=== PATIENT | male | born 2000 | race Caucasian/White ===

== ENCOUNTER 2019-02-04 23:17 | Emergency (ER) | payer MEDICAID ==
[2019-02-04] MEDS ORDERED: ONDANSETRON HCL IV 4 MG/2 ML VIAL IVP ONE (23:32)
--- NOTE | 2019-02-04 23:36 | Emergency Department Record ---
History of Present Illness - General Chief complaint: Vomiting Stated complaint: VOMITING Time Seen by Provider: 02/04/19 23:32 Source: Patient Mode of Arrival: Ambulatory Limitations: No limitations - History of Present Illness Initial comments: 18 yo male presents to ED for evaluation of nausea and vomiting that began approximately 16 hours ago. 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 Patient denies abdominal pain symptoms, denies health problems at his baseline. Patient denies previous surgeries. MD complaint: Nausea, Vomiting Onset/Timin -: Days(s) Description of Vomiting: Other Associated Abdominal Pain: Yes Location: Epigastric Radiation: Other Severity: Moderate Severity scale (1-10): 5 Quality: Aching Consistency: Constant Improves with: None Worsens with: None Context: Other Associated Symptoms: Denies other symptoms - Related Data Previous Rx's Medication Instructions Recorded Ondansetron [Zofran Odt] 4 mg PO Q8H PRN #15 tab.rapdis 02/05/19 Allergies Allergy/AdvReac Type Severity Reaction Status Date / Time No Known Drug Allergies Allergy Unverified 11/18/18 16:11 Travel Screening - Travel/Exposure Within Last 30 Days Have you traveled within the last 30 days?: No - Travel Symptoms Symptom Screening: None Review of Systems Constitutional: Denies: Chills, Fever, Malaise, Night sweats Eyes: Denies: Eye discharge, Eye pain ENT: Denies: Congestion, Ear pain, Epistaxis Respiratory: Denies: Cough, Dyspnea Cardiovascular: Denies: Chest pain, Dyspnea on exertion Endocrine: Denies: Fatigue, Heat or cold intolerance Gastrointestinal: Reports: Nausea, Vomiting. Denies: Abdominal pain Genitourinary: Denies: Incontinence, Retention Musculoskeletal: Denies: Arthralgia, Back pain Skin: Denies: Bruising, Change in color Neurological: Denies: Abnormal gait, Confusion, Headache, Seizure Psychiatric: Denies: Anxiety Hematological/Lymphatic: Denies: Anemia, Blood Clots Physical Exam - General General Appearance: Alert, Oriented x3, Cooperative, Mild distress Limitations: No limitations - Head Head exam: Atraumatic, Normocephalic, Normal inspection Head exam detail: negative: Abrasion, Contusion, Pearce's sign, General tenderness, Hematoma, Laceration - Eye Eye exam: Normal appearance. negative: Conjunctival injection, Periorbital swelling, Periorbital tenderness, Scleral icterus - ENT Ear exam: negative: Auricular hematoma, Auricular trauma Nasal Exam: negative: Active bleeding, Discharge, Dried blood, Foreign body Mouth exam: negative: Drooling, Laceration, Muffled voice, Tongue elevation - Neck Neck exam: Normal inspection. negative: Meningismus, Tenderness - Respiratory Respiratory exam: Normal lung sounds bilaterally. negative: Rales, Respiratory distress, Rhonchi, Stridor - Cardiovascular Cardiovascular Exam: Normal rhythm, Normal heart sounds, Tachycardia - GI/Abdominal GI/Abdominal exam: Soft, Other (Benign abdominal examination, no rebound, guarding, or peritoneal signs are present on examination.). negative: Rebound, Rigid, Tenderness - Rectal Rectal exam: Deferred - exam: Deferred - Extremities Extremities exam: Normal inspection. negative: Pedal edema, Tenderness - Back Back exam: Denies: CVA tenderness (R), CVA tenderness (L) - Neurological Neurological exam: Alert, Normal gait, Oriented X3 - Psychiatric Psychiatric exam: Normal affect, Normal mood - Skin Skin exam: Normal color. negative: Abrasion Type of lesion: negative: abrasion Course Vital Signs 02/04/19 23:23 Pulse Rate 119 H Respiratory 22 Rate Blood Pressure 135/105 Pulse Ox 97 - Reevaluation(s) Reevaluation #1: 02/04/19 23:57 Laboratory studies were reviewed and are grossly unremarkable for an acute process. Patient was updated on all results, clinically improved on re-evaluation. 2nd Liter ordered to infuse. Reevaluation #2: 02/05/19 00:47 Patient reassessed following 2nd Liter NS, reports that he is feeling much improved, no recurrent vomiting while in the ED. Repeat abdominal examination is benign. repeat pulse 88. Patient appears stable for discharge at this time. Medical Decision Making - Lab Data Result diagrams: 02/04/19 23:30 02/04/19 23:30 Disposition Disposition: Discharge Clinical Impression: Nausea & vomiting Qualifiers: Vomiting type: unspecified Vomiting Intractability: non-intractable Qualified Code(s): R11.2 - Nausea with vomiting, unspecified Disposition: Home, Self-Care Condition: (2) Stable Instructions: Acute Nausea and Vomiting (ED) Additional Instructions: Return to ED if your symptoms worsen or if you have any concerns. Zofran as directed. Follow-up with your family doctor in 3-5 days as directed. Prescriptions: Ondansetron [Zofran Odt] 4 mg PO Q8H PRN #15 tab.rapdis PRN Reason: Nausea/Vomiting Forms: Patient Portal Access Time of Disposition: 00:48 Quality - Quality Measures Quality Measures: N/A - Blood Pressure Screening Does Patient Have Any of the Following: No Blood Pressure Classification: Hypertensive Reading Systolic Measurement: 135 Diastolic Measurement: 105 Screening for High Blood Pressure: < First Hypertensive BP, F/U Documented > [ G8950] First Hypertensive Follow-up Interventions: Referral to alternative/primary care provider.
[2019-02-04 23:40] LABS: BASO % 0.1 % (0-6); HEMATOCRIT 48.9 % (42.0-52.0); HEMOGLOBIN 17.2 gm/dl (14.0-18.0); MEAN CELL VOLUME 85.5 fl (81-97); MEAN CORPUSCULAR HGB CONC 35.2 g/dl (32-36); MEAN PLATELET VOLUME 10.2 fl (7.4-10.4); MONO % 2.1 % (0-9); PLATELET COUNT 251 K/uL (130-400); RED BLOOD COUNT 5.72 M/uL (4.40-5.70); RED CELL DISTRIBUTION WIDTH 12.6 % (11.5-14.5); WHITE BLOOD COUNT W/O DIFF 11.2 K/uL (4.2-12.2)
[2019-02-04] MEDS ORDERED: 0.9 % SODIUM CHLORIDE 1000ML 1,000 ML IV SCH (23:45)
[2019-02-04 23:49] LABS: BLOOD UREA NITROGEN 15 mg/dL (6-20); CREATININE 0.9 mg/dL (0.7-1.2)
[2019-02-04 23:50] LABS: LIPASE 8 U/L (13-60)
[2019-02-04 23:51] LABS: GLUCOSE,RANDOM 133 mg/dL (74-109)
[2019-02-04 23:54] LABS: ALB/GLOB RATIO 1.9 (1.1-1.8); ALBUMIN 5.2 g/dL (4.0-5.0); ALKALINE PHOSPHATASE 112 U/L (40-129); ALT/SGPT 20 U/L (<41); AST/SGOT 18 U/L (10.0-50.0)
[2019-02-05 00:01] LABS: PLATELET ESTIMATE NORMAL (NORMAL)
[2019-02-05] MEDS ORDERED: 0.9 % SODIUM CHLORIDE 1000ML 1,000 ML IV SCH (00:15)
[2019-02-05] MEDS ORDERED: ONDANSETRON 4 MG ODT TABLET SL ONE (00:49)
== END 2019-02-05 01:17 | disposition home or self-care (01) ==
LOC: ER 23:17
DX: K92.0 Hematemesis (principal); R10.13 Epigastric pain
CPT/HCPCS: 99284 ×2; 96374; 96361; 83690; 80053; 85027; J2405; J7030

== ENCOUNTER 2019-05-01 18:27 | Emergency (ER) | payer MEDICAID ==
[2019-05-01] MEDS ORDERED: 0.9 % SODIUM CHLORIDE 1,000 ML BAG IV ONE ×2 (18:53→20:03)
[2019-05-01] MEDS ORDERED: ONDANSETRON HCL IV 4 MG/2 ML VIAL IV ONE (18:53)
--- NOTE | 2019-05-01 18:58 | Emergency Department Record ---
History of Present Illness - General Chief complaint: Vomiting blood Stated complaint: vomiting blood Time Seen by Provider: 05/01/19 18:38 Source: Patient, Family Mode of Arrival: Ambulatory Limitations: No limitations - History of Present Illness Initial comments: The patient is here due to vomiting all day today. The patient has not felt well today and has had multiple episodes of vomiting which started about 10 hours ago. Over the last few hours he may have had some mild coffee grounds in it and sometimes some blood streaking. The patient denies any diarrhea, abdominal pain, fever, dysuria, black or bloody stools or CP. The patient was here in the ER 3 months ago for the same thing and has a LONG hx of frequent vomiting. He has had no abdominal surgeries and does not smoke marijuana. MD complaint: Coffee ground emesis Onset/Timin -: Hour(s) Quality: Painless Consistency: Intermittent Improves with: None Worsens with: None Associated Symptoms: Vomiting Treatments Prior to Arrival: None - Related Data Previous Rx's Medication Instructions Recorded Omeprazole [Prilosec] 20 mg PO DAILY #14 cap. 05/01/19 Ondansetron [Zofran Odt] 4 mg SL .Q4-6H PRN #12 tab.rapdis 05/01/19 Allergies Allergy/AdvReac Type Severity Reaction Status Date / Time No Known Drug Allergies Allergy Verified 05/01/19 18:39 Travel Screening - Travel/Exposure Within Last 30 Days Have you traveled within the last 30 days?: No - Travel/Exposure Within Last Year Have you traveled outside the [place] in the last year?: No - Additonal Travel Details Have you been exposed to anyone with a communicable illness?: No - Travel Symptoms Symptom Screening: None Review of Systems Constitutional: Denies: Chills, Fever Eyes: Denies: Eye discharge ENT: Denies: Congestion Respiratory: Denies: Cough Past Medical History - SOCIAL HISTORY Smoking Status: Never smoker Alcohol Use: None Drug Use: None - RESPIRATORY Hx Respiratory Disorders: No - CARDIOVASCULAR Hx Cardio Disorders: No - NEURO Hx Neuro Disorders: No - GI Hx GI Disorders: No - Hx Genitourinary Disorders: No - ENDOCRINE Hx Endocrine Disorders: No - MUSCULOSKELETAL Hx Musculoskeletal Disorders: No - PSYCH Hx Psych Problems: No - HEMATOLOGY/ONCOLOGY Hx Hematology/Oncology Disorders: No Family Medical History Any Significant Family History?: No Family Hx Comment (NOT TO BE USED IN PLACE OF ITEMS BELOW): DENIES Physical Exam - General General Appearance: Alert, Oriented x3, Cooperative, No acute distress - Head Head exam: Atraumatic, Normocephalic, Normal inspection - Eye Eye exam: Normal appearance, PERRL - ENT Throat exam: Normal inspection. negative: Tonsillar erythema, Tonsillar exudate - Neck Neck exam: Normal inspection, Full ROM. negative: Tenderness - Respiratory Respiratory exam: Normal lung sounds bilaterally. negative: Respiratory distress - Cardiovascular Cardiovascular Exam: Regular rate, Normal rhythm, Normal heart sounds - GI/Abdominal GI/Abdominal exam: Soft, Normal bowel sounds. negative: Distended, Guarding, Rebound, Rigid, Tenderness - Rectal Rectal exam: Deferred (The patient refused a rectal exam due to no hx of black or bloody stools.) - Extremities Extremities exam: Normal inspection, Full ROM, Normal capillary refill. negative: Tenderness - Back Back exam: Reports: Normal inspection - Neurological Neurological exam: Alert, Normal gait. negative: Abnormal gait, Motor sensory deficit Course Vital Signs 05/01/19 18:40 Temperature 100 F H Pulse Rate 100 H Respiratory 20 Rate Blood Pressure 154/92 Pulse Ox 99 - Reevaluation(s) Reevaluation #1: The patient is feeling much better at this time. He no longer is vomiting and his nausea is improved. The patient also denies any AP, TRIMBLE, or back pain. 05/01/19 19:44 Reevaluation #2: The patient is resting comfortably at this time. He did vomit once after drinking some water but there was no bright red blood present. The patient has a LONG hx of this exact same problems and clearly seems to have a Cyclic Vomiting disorder. He will be referred to GI for an EGD and may need to return to the ER tomorrow if his symptoms persist. I did offer to keep the patient in the hospital overnight but he did decline and would like to go home. I do feel the patient is stable for discharge due to the fact he has a long hx of this exact same issue, has no pain or abdominal tenderness and clearly is not significantly bleeding. 05/01/19 20:05 Reevaluation #3: The patient is doing very well at this time. He has had no further vomiting for at least an hour and is resting comfortably. I again offered to keep the patient in the hospital overnight but he did decline. The patient will need to return to the ER for any worsening symptoms or if the vomiting returns tomorrow. He is to take the Prilosec and Zofran as directed. 05/01/19 21:01 Medical Decision Making - Lab Data Result diagrams: 05/01/19 18:50 05/01/19 18:50 Disposition Disposition: Discharge Clinical Impression: Nausea & vomiting Qualifiers: Vomiting type: unspecified Vomiting Intractability: non-intractable Qualified Code(s): R11.2 - Nausea with vomiting, unspecified Disposition: Home, Self-Care Condition: (2) Stable Instructions: Acute Nausea and Vomiting (ED) Additional Instructions: Please do not eat or drink anything until morning. Use the Zofran as directed and start the Prilosec tomorrow. Please return to the ER for any persistent vomiting, or any pain, fever, or bleeding. Please see the GI Specialist in the Specialty clinic here next week or in [place] for further evaluation. Prescriptions: Omeprazole [Prilosec] 20 mg PO DAILY #14 cap Ondansetron [Zofran Odt] 4 mg SL .Q4-6H PRN #12 tab.rapdis PRN Reason: Nausea Referrals: [facility] [Provider Group] Forms: Patient Portal Access Time of Disposition: 21:05 Quality - Quality Measures Quality Measures: N/A - Blood Pressure Screening View Details: Yes Does Patient Have Any of the Following: No Blood Pressure Classification: Hypertensive Reading Systolic Measurement: 154 Diastolic Measurement: 92 Screening for High Blood Pressure: < First Hypertensive BP, F/U Documented > [G8950] First Hypertensive Follow-up Interventions: Referral to alternative/primary care provider.
[2019-05-01 19:17] LABS: HEMATOCRIT 48.2 % (42.0-52.0); HEMOGLOBIN 16.9 gm/dl (14.0-18.0); MEAN CELL VOLUME 86.8 fl (81-97); MEAN CORPUSCULAR HEMOGLOBIN 30.5 pg (27-33); MEAN CORPUSCULAR HGB CONC 35.1 g/dl (32-36); MEAN PLATELET VOLUME 10.8 fl (7.4-10.4); PLATELET COUNT 231 K/uL (130-400); RED BLOOD COUNT 5.55 M/uL (4.40-5.70); RED CELL DISTRIBUTION WIDTH 12.4 % (11.5-14.5); WHITE BLOOD COUNT W/O DIFF 9.4 K/uL (4.2-12.2)
[2019-05-01 19:20] LABS: URINE APPEARANCE CLEAR; URINE BILIRUBIN NEGATIVE (NEGATIVE); URINE BLOOD NEGATIVE (NEGATIVE); URINE COLOR YELLOW; URINE GLUCOSE (UA) NEGATIVE (NEGATIVE); URINE KETONE 15 mg/dL (NEGATIVE); URINE LEUKOCYTE ESTERASE NEGATIVE (NEGATIVE); URINE NITRITE NEGATIVE (NEGATIVE); URINE UROBILINOGEN 0.2 E.U./dL (0.20 - 1.00)
[2019-05-01 19:21] LABS: AMPHETAMINE SCREEN URINE NOT DETECTED; BARBITURATE SCREEN URINE NOT DETECTED; BENZODIAZEPINE SCREEN URINE NOT DETECTED; COCAINE SCREEN URINE NOT DETECTED; METHADONE SCREEN URINE NOT DETECTED; METHAMPHETAMINE SCREEN NOT DETECTED; OPIATE SCREEN URINE NOT DETECTED; OXYCODONE SCREEN URINE NOT DETECTED; PHENCYCLIDINE SCREEN URINE NOT DETECTED; PROPOXYPHENE SCREEN URINE NOT DETECTED; THC SCREEN URINE NOT DETECTED; TRICYCLIC ANTIDEPRESSANT SCRN NOT DETECTED
[2019-05-01 19:27] LABS: URINE EPITHELIAL CELLS NONE SEEN (FEW); URINE RBC NONE SEEN (NONE SEEN); URINE WBC NONE SEEN (0-2/hpf)
[2019-05-01 19:29] LABS: BLOOD UREA NITROGEN 9 mg/dL (6-20); CREATININE 0.9 mg/dL (0.7-1.2)
[2019-05-01] MEDS ORDERED: ONDANSETRON HCL IV 4 MG/2 ML VIAL IVP ONE (19:29)
[2019-05-01 19:30] LABS: LIPASE 19 U/L (13-60); TOTAL PROTEIN 7.5 g/dL (6.6-8.7)
[2019-05-01 19:32] LABS: GLUCOSE,RANDOM 122 mg/dL (74-109)
[2019-05-01 19:35] LABS: ALBUMIN 5.1 g/dL (4.0-5.0); ALKALINE PHOSPHATASE 89 U/L (40-129); ALT/SGPT 16 U/L (<41); BILIRUBIN,DIRECT < 0.2 mg/dL (0-0.3)
[2019-05-01 19:36] LABS: AST/SGOT 19 U/L (10.0-50.0)
[2019-05-01] MEDS ORDERED: SUCRALFATE 1 G/10 ML UD PO ONE (19:43)
[2019-05-01] MEDS ORDERED: ONDANSETRON 4 MG ODT TABLET SL ONE (21:03)
== END 2019-05-01 21:24 | disposition home or self-care (01) ==
LOC: ER 18:27
DX: R11.2 Nausea with vomiting, unspecified (principal)
CPT/HCPCS: 80048; 80076; 80305; 81001; 83690; 85027; 96361; 96374; 99284; J2405; J7030

== ENCOUNTER 2019-06-21 02:13 | Emergency (ER) | payer MEDICAID ==
[2019-06-21] MEDS ORDERED: ONDANSETRON HCL IV 4 MG/2 ML VIAL IVP ONE (02:25)
[2019-06-21] MEDS ORDERED: DIPHENHYDRAMINE HCL 50 MG/ML VIAL IVP ONE (02:25)
[2019-06-21] MEDS ORDERED: METOCLOPRAMIDE HCL 10 MG/2 ML VIAL IVP ONE (02:25)
[2019-06-21] MEDS ORDERED: 0.9 % SODIUM CHLORIDE 1000ML 1,000 ML IV SCH (02:30)
--- NOTE | 2019-06-21 02:31 | Emergency Department Record ---
History of Present Illness - General Chief complaint: Vomiting blood Stated complaint: VOMMITING Time Seen by Provider: 06/21/19 02:19 Source: Patient Mode of Arrival: Ambulatory Limitations: No limitations - History of Present Illness Initial comments: 18 yo male presents to ED for evaluation of vomiting blood intermittently for the past 5.5 hours. Patient has a history of UGI bleeding related to repeated episodes of retching, reports that he does not take anything daily for PUD. Patient also reports that he has Zofran at home that he did not use this evening. Patient denies history of marijuana use or alcohol use, denies health problems at his baseline. Patient denies use or anticoagulation medications at his baseline. MD complaint: Blood streaked emesis Onset/Timin -: Hour(s) Radiation: None Consistency: Getting worse Improves with: None Worsens with: None Context: Other Associated Symptoms: Abdominal pain, Nausea, Vomiting Treatments Prior to Arrival: None - Related Data Previous Rx's Medication Instructions Recorded Ondansetron [Zofran Odt] 4 mg SL .Q4-6H PRN #12 tab.rapdis 05/01/19 Allergies Allergy/AdvReac Type Severity Reaction Status Date / Time No Known Drug Allergies Allergy Verified 05/01/19 18:39 Travel Screening - Travel/Exposure Within Last 30 Days Have you traveled within the last 30 days?: No - Travel/Exposure Within Last Year Have you traveled outside the [place] in the last year?: No - Additonal Travel Details Have you been exposed to anyone with a communicable illness?: No - Travel Symptoms Symptom Screening: None Review of Systems Constitutional: Denies: Chills, Fever, Malaise, Night sweats Eyes: Denies: Eye discharge, Eye pain ENT: Denies: Congestion, Ear pain, Epistaxis Respiratory: Denies: Cough, Dyspnea Cardiovascular: Denies: Chest pain, Dyspnea on exertion Endocrine: Denies: Fatigue, Heat or cold intolerance Gastrointestinal: Reports: Hematemesis, Nausea, Vomiting. Denies: Abdominal pain Genitourinary: Denies: Incontinence, Retention Musculoskeletal: Denies: Arthralgia, Back pain Skin: Denies: Bruising, Change in color Neurological: Denies: Abnormal gait, Confusion, Headache, Seizure Psychiatric: Denies: Anxiety Hematological/Lymphatic: Denies: Anemia, Blood Clots Past Medical History - SOCIAL HISTORY Smoking Status: Never smoker Alcohol Use: None Drug Use: None - RESPIRATORY Hx Respiratory Disorders: No - CARDIOVASCULAR Hx Cardio Disorders: No - NEURO Hx Neuro Disorders: No - GI Hx GI Disorders: No - Hx Genitourinary Disorders: No - ENDOCRINE Hx Endocrine Disorders: No - MUSCULOSKELETAL Hx Musculoskeletal Disorders: No - PSYCH Hx Psych Problems: No - HEMATOLOGY/ONCOLOGY Hx Hematology/Oncology Disorders: No Family Medical History Any Significant Family History?: No Family Hx Comment (NOT TO BE USED IN PLACE OF ITEMS BELOW): DENIES Physical Exam - General General Appearance: Alert, Oriented x3, Cooperative, Moderate distress, Other (Patient does exhibit gross hematemesis on examination) Limitations: No limitations - Head Head exam: Atraumatic, Normocephalic, Normal inspection Head exam detail: negative: Abrasion, Contusion, Pearce's sign, General tenderness, Hematoma, Laceration - Eye Eye exam: Normal appearance. negative: Conjunctival injection, Periorbital swelling, Periorbital tenderness, Scleral icterus - ENT Ear exam: negative: Auricular hematoma, Auricular trauma Nasal Exam: negative: Active bleeding, Discharge, Dried blood, Foreign body Mouth exam: negative: Drooling, Laceration, Muffled voice, Tongue elevation - Neck Neck exam: Normal inspection. negative: Meningismus, Tenderness - Respiratory Respiratory exam: Normal lung sounds bilaterally. negative: Rales, Respiratory distress, Rhonchi, Stridor - Cardiovascular Cardiovascular Exam: Regular rate, Normal rhythm, Normal heart sounds - GI/Abdominal GI/Abdominal exam: Soft. negative: Rebound, Rigid, Tenderness - Rectal Rectal exam: Deferred - exam: Deferred - Extremities Extremities exam: Normal inspection. negative: Pedal edema, Tenderness - Back Back exam: Reports: Normal inspection. Denies: CVA tenderness (R), CVA tenderness (L) - Neurological Neurological exam: Alert, Normal gait, Oriented X3 - Psychiatric Psychiatric exam: Normal affect, Normal mood - Skin Skin exam: Normal color. negative: Abrasion Type of lesion: negative: abrasion Course Vital Signs 06/21/19 02:22 Temperature 98.5 F Pulse Rate [ 114 H Left] Respiratory 16 Rate Blood Pressure 132/79 [Left] Pulse Ox 97 - Reevaluation(s) Reevaluation #1: 06/21/19 02:31 Previous records were reviewed: Patient was seen on 05/01/19 and 02/04/19 for similar symptoms, has declined admission, and has not followed up with GI for EGD as previously recommended. Will administer reglan/benadryl/zofran/protonix, obtain basic laboratory studies, and initiate transfer for GI evaluation. 06/21/19 03:01 laboratory studies were reviewed and appear grossly unremarkable for an acute process. Will initiate transfer to [facility] for GI evaluation. Reevaluation #2: 06/21/19 03:14 Case was discussed with Dr. Campa, will accept transfer for GI consultation. Medical Decision Making - Lab Data Result diagrams: 06/21/19 02:35 06/21/19 02:35 Disposition Disposition: Transfer Clinical Impression: UGI bleed Disposition: Acute Care Hospital Transfer Transfer To: [facility] Reason For Transfer: GI Consultation Accepting Physician: Katheryn Time Discussed w/Accepting Physician: 03:03 Condition: (2) Stable Forms: Patient Portal Access Time of Disposition: 03:15 Quality - Quality Measures Quality Measures: N/A - Blood Pressure Screening Does Patient Have Any of the Following: No Blood Pressure Classification: Pre-Hypertensive BP Reading Systolic Measurement: 132 Diastolic Measurement: 79 Screening for High Blood Pressure: < Pre-Hypertensive BP, F/U Documented > [G8950] Pre-Hypertensive Follow-up Interventions: Referral to alternative/primary care provider.
[2019-06-21] MEDS ORDERED: PANTOPRAZOLE SODIUM IV 40 MG VIAL IVP ONE (02:36)
[2019-06-21 02:43] LABS: ABSOLUTE NEUTROPHIL COUNT 6.34; BASO % 0.1 % (0-6); EOS % 0.1 % (0-6); HEMATOCRIT 49.3 % (42.0-52.0); HEMOGLOBIN 17.4 gm/dl (14.0-18.0); LYMPH % 5.8 % (16-45); MEAN CELL VOLUME 85.4 fl (81-97); MEAN CORPUSCULAR HGB CONC 35.3 g/dl (32-36); MEAN PLATELET VOLUME 10.4 fl (7.4-10.4); MONO % 4.8 % (0-9); PLATELET COUNT 229 K/uL (130-400); RED BLOOD COUNT 5.77 M/uL (4.40-5.70); RED CELL DISTRIBUTION WIDTH 12.2 % (11.5-14.5); WHITE BLOOD COUNT W/O DIFF 7.1 K/uL (4.2-12.2)
[2019-06-21 02:45] LABS: MEAN CORPUSCULAR HEMOGLOBIN 30.1 pg (27-33)
[2019-06-21 02:54] LABS: BLOOD UREA NITROGEN 9 mg/dL (6-20); CREATININE 0.9 mg/dL (0.7-1.2); TOTAL PROTEIN 7.8 g/dL (6.6-8.7)
[2019-06-21 02:56] LABS: GLUCOSE,RANDOM 147 mg/dL (74-109)
[2019-06-21 02:59] LABS: ALBUMIN 5.2 g/dL (4.0-5.0); ALKALINE PHOSPHATASE 91 U/L (40-129); ALT/SGPT 20 U/L (<41); AST/SGOT 18 U/L (10.0-50.0)
[2019-06-21 03:11] LABS: PLATELET ESTIMATE NORMAL (NORMAL)
== END 2019-06-21 03:27 | disposition short-term general hospital (02) ==
LOC: ER 02:13
DX: K92.0 Hematemesis (principal); R10.9 Unspecified abdominal pain
CPT/HCPCS: 80053; 85027; 96361; 96374; 96375; 99285; C9113; J1200; J2405; J2765; J7030

== ENCOUNTER 2019-08-16 14:15 | Emergency (ER) | payer MEDICAID ==
--- NOTE | 2019-08-16 14:37 | Emergency Department Record ---
History of Present Illness - General Chief complaint: Vomiting blood Stated complaint: VOMITTING BLOOD,CHILLS Time Seen by Provider: 08/16/19 14:27 Source: Patient, Family Mode of Arrival: Ambulatory Limitations: No limitations - History of Present Illness Initial comments: The patient is here due to the acute onset of vomiting 6 hours ago. He has vomited multiple times and may have had some blood in it. The patient denies any AP, back pain, fever, or black or bloody stools. The patient has a LONG hx of cyclic vomiting disorder exactly like this. He was seen here in June of this year for the exact same issue and was transferred to [facility] in [place] for an EGD that was performed and was completely normal per mom. The patient has had about a half dozen of these attacks this year alone. MD complaint: Other Onset/Timin -: Hour(s) Consistency: Constant Improves with: None Worsens with: None Associated Symptoms: Nausea, Vomiting - Related Data Previous Rx's Medication Instructions Recorded Ondansetron [Zofran Odt] 4 mg SL .Q4-6H PRN #12 tab.rapdis 05/01/19 Ondansetron [Zofran Odt] 4 mg SL .Q4-6H PRN #12 tab.rapdis 08/16/19 Promethazine HCl [Phenergan] 25 mg PO TID #12 tablet 08/16/19 Allergies Allergy/AdvReac Type Severity Reaction Status Date / Time No Known Drug Allergies Allergy Verified 08/16/19 14:25 Travel Screening - Travel/Exposure Within Last 30 Days Have you traveled within the last 30 days?: No - Travel/Exposure Within Last Year Have you traveled outside the [place] in the last year?: No - Additonal Travel Details Have you been exposed to anyone with a communicable illness?: No - Travel Symptoms Symptom Screening: Vomiting Review of Systems Constitutional: Denies: Chills, Fever Eyes: Denies: Eye discharge ENT: Denies: Congestion Respiratory: Denies: Cough, Dyspnea Past Medical History - SOCIAL HISTORY Smoking Status: Never smoker Alcohol Use: None Drug Use: None - RESPIRATORY Hx Respiratory Disorders: No - CARDIOVASCULAR Hx Cardio Disorders: No - NEURO Hx Neuro Disorders: No - GI Hx GI Disorders: No - Hx Genitourinary Disorders: No - ENDOCRINE Hx Endocrine Disorders: No - MUSCULOSKELETAL Hx Musculoskeletal Disorders: No - PSYCH Hx Psych Problems: No - HEMATOLOGY/ONCOLOGY Hx Hematology/Oncology Disorders: No Family Medical History Any Significant Family History?: No Family Hx Comment (NOT TO BE USED IN PLACE OF ITEMS BELOW): DENIES Physical Exam - General General Appearance: Alert, Oriented x3, Cooperative, No acute distress (The patient presently is sitting on the bed spitting into a vomit bag. There is no blood visible presently.) - Head Head exam: Atraumatic, Normocephalic, Normal inspection - Eye Eye exam: Normal appearance, PERRL - ENT Throat exam: Normal inspection. negative: Tonsillar erythema, Tonsillar exudate - Neck Neck exam: Normal inspection, Full ROM. negative: Tenderness - Respiratory Respiratory exam: Normal lung sounds bilaterally. negative: Respiratory distress - Cardiovascular Cardiovascular Exam: Regular rate, Normal rhythm, Normal heart sounds - GI/Abdominal GI/Abdominal exam: Soft, Normal bowel sounds. negative: Tenderness - Extremities Extremities exam: Normal inspection, Full ROM, Normal capillary refill. negative: Tenderness - Neurological Neurological exam: Alert, Normal gait. negative: Abnormal gait, Motor sensory deficit - Psychiatric Psychiatric exam: negative: Agitated, Anxious - Skin Skin exam: negative: Rash Course Vital Signs 08/16/19 14:17 Temperature 98.6 F Pulse Rate 100 H Respiratory 18 Rate Blood Pressure 144/97 Pulse Ox 97 - Reevaluation(s) Reevaluation #1: The patient is doing a lot better at this time. His nausea has resolved and he is resting comfortably. On exam his abdomen is very soft and nontender in all 4 quads. I did discus the plan with the patient and mother. He is to proceed home to rest today and see his PCP later this week for recheck. 08/16/19 15:34 Medical Decision Making - Data Complexity MDM Data: Labs Ordered and/or Reviewed - Lab Data Result diagrams: 08/16/19 14:37 08/16/19 14:37 Disposition Disposition: Discharge Clinical Impression: Cyclic vomiting syndrome Disposition: Home, Self-Care Condition: (2) Stable Instructions: Acute Nausea and Vomiting (ED) Additional Instructions: Please rest at home today and do not eat or drink for 3 hours. Slowly advance your diet today. Use the Zofran and Phenergan as needed and see your family doctor for recheck later this week. Return to the ER for any worsening symptoms. Prescriptions: Promethazine HCl [Phenergan] 25 mg PO TID #12 tablet Ondansetron [Zofran Odt] 4 mg SL .Q4-6H PRN #12 tab.rapdis PRN Reason: Nausea Forms: Patient Portal Access Time of Disposition: 15:33 Quality - Quality Measures Quality Measures: N/A - Blood Pressure Screening View Details: Yes Does Patient Have Any of the Following: No Blood Pressure Classification: Hypertensive Reading Systolic Measurement: 144 Diastolic Measurement: 97 Screening for High Blood Pressure: < First Hypertensive BP, F/U Documented > [G8950] First Hypertensive Follow-up Interventions: Referral to alternative/primary care provider.
[2019-08-16] MEDS: FAMOTIDINE IV 20 MG/2 ML VIAL IVP ONE (14:44)
[2019-08-16] MEDS: ONDANSETRON HCL IV 4 MG/2 ML VIAL IV ONE (14:44)
[2019-08-16] MEDS: 0.9 % SODIUM CHLORIDE 1,000 ML BAG IV ONE (14:44)
[2019-08-16 14:48] LABS: ABSOLUTE NEUTROPHIL COUNT 8.33; HEMATOCRIT 47.8 % (42.0-52.0); HEMOGLOBIN 16.9 gm/dl (14.0-18.0); MEAN CELL VOLUME 85.2 fl (81-97); MEAN CORPUSCULAR HEMOGLOBIN 30.1 pg (27-33); MEAN CORPUSCULAR HGB CONC 35.4 g/dl (32-36); MEAN PLATELET VOLUME 10.8 fl (7.4-10.4); PLATELET COUNT 244 K/uL (130-400); RED BLOOD COUNT 5.61 M/uL (4.40-5.70); RED CELL DISTRIBUTION WIDTH 12.7 % (11.5-14.5); WHITE BLOOD COUNT W/O DIFF 9.1 K/uL (4.2-12.2)
[2019-08-16 14:55] LABS: BLOOD UREA NITROGEN 11 mg/dL (6-20); EST GLOMERULAR FILTRATION RATE > 60 mL/min
[2019-08-16 14:56] LABS: LIPASE 11 U/L (13-60); PLATELET ESTIMATE NORMAL (NORMAL); TOTAL PROTEIN 7.5 g/dL (6.6-8.7)
[2019-08-16 14:58] LABS: GLUCOSE,RANDOM 121 mg/dL (74-109)
[2019-08-16 15:00] LABS: ALT/SGPT 16 U/L (<41)
[2019-08-16 15:01] LABS: ALBUMIN 5.2 g/dL (4.0-5.0); AST/SGOT 14 U/L (10.0-50.0); BILIRUBIN,DIRECT < 0.2 mg/dL (0-0.3)
[2019-08-16 15:02] LABS: ALKALINE PHOSPHATASE 85 U/L (40-129)
[2019-08-16] MEDS: DIPHENHYDRAMINE HCL 50 MG/ML VIAL IVP ONE (15:08)
[2019-08-16] MEDS: METOCLOPRAMIDE HCL 10 MG/2 ML VIAL IVP ONE (15:08)
== END 2019-08-16 15:50 | disposition home or self-care (01) ==
LOC: ER 14:15
DX: R11.15 Cyclical vomiting syndrome unrelated to migraine (principal)
CPT/HCPCS: 80048; 80076; 83690; 85027; 96361; 96374; 96375; 99284; J1200; J2405; J2765; J3490; J7030